=== PATIENT | male | born 1955 | race Caucasian/White ===

== ENCOUNTER → 2016-07-15 | Outpatient (CLI) | payer BC | LOC: KOH-I 10:02 | DX: J18.0 Bronchopneumonia, unspecified organism (principal); J98.4 Other disorders of lung | CPT/HCPCS: 71020 ==

== ENCOUNTER → 2021-05-09 | Outpatient (CLI) | payer MEDICARE, OTHER ==
[~2021-05-09] MED LIST: AMLODIPINE BESY10 MG PO; BENADRYL 25MG C25 MG PO; CELEBREX 200MG200 MG PO; COREG 25MG TAB25 MG PO; COZAAR100 MG PO; CYMBALTA 20 MG20 MG PO; ECOTRIN81 MG PO; FISH OIL PEARL1 EAC1 PO; GLUCOPHAGE XR500 MG PO; HYDRALAZINE HCL25 MG PO; HYDROCHLOROTHIA25 MG PO; LASIX20 MG PO; LIPITOR TAB 2020 MG PO; NORCO 10-325 T1 EACH PO; ONCE DAILY1 EACH PO; PROZAC20 MG PO
== END ==
LOC: EMI 08:38
DX: M51.36 Other intervertebral disc degeneration, lumbar region (principal); M47.816 Spondylosis without myelopathy or radiculopathy, lumbar region
CPT/HCPCS: 72148